=== PATIENT | female | born 1985 | race Caucasian/White ===

== ENCOUNTER 2020-08-17 18:37 | Emergency (ER) | payer MEDICAID ==
[~2020-08-17] VITALS: Ht 157.5 cm; Wt 56.6 kg
[2020-08-17] MEDS ORDERED: PYRIDOSTIGMINE 60 MG TABLET PO STA (19:36)
[2020-08-17] MEDS ORDERED: LORazepam 1MG TABLET PO ONE (20:00)
--- NOTE | 2020-08-17 20:10 | NUR ---
ASSUMING CARE OF PT AT THIS TIME. FIRST CONTACT FOR ILANA Iniguez RN AND MYSELF.
[2020-08-17] MEDS ORDERED: LORazepam 1MG TABLET ONE (20:17)
[2020-08-17 20:25] LABS: BASOPHILS % (AUTO) 1 % (0-1); EOSINOPHILS % (AUTO) 1 % (1-7); LYMPHOCYTES % (AUTO) 24 % (22-44); MEAN CORPUSCULAR HEMOGLOBIN 30.5 pg (27.0-34.8); MEAN CORPUSCULAR HGB CONC 33.4 g/dL (32.4-35.8); MEAN PLATELET VOLUME 9.3 fL (7.4-10.4); MONOCYTES % (AUTO) 6 % (2-9); NEUTROPHILS % (AUTO) 69 % (42-75); PLATELET COUNT 255 x10^3/uL (130-400); RED BLOOD COUNT 4.39 x10^6/uL (3.82-5.3)
[2020-08-17 20:26] LABS: MD NO
[2020-08-17 20:29] LABS: ALBUMIN 3.9 g/dL (3.4-5.0); ANION GAP 3 mmol/L (5-15); CALCIUM 8.9 mg/dL (8.5-10.1); CHLORIDE 108 mmol/L (98-107); CREATININE 0.52 mg/dL (0.55-1.02)
[2020-08-17 20:33] LABS: TROPONIN I < 0.015 ng/mL (0.000-0.045)
[2020-08-17 21:28] VITALS: BP 124/78
== END 2020-08-17 21:30 | disposition home or self-care (01) ==
LOC: ED 19:07
DX: F41.1 Generalized anxiety disorder (principal); R07.2 Precordial pain; R07.89 Other chest pain; R94.31 Abnormal electrocardiogram [ECG] [EKG]
CPT/HCPCS: 36415; 71045; 80048; 82040; 84484; 85025; 93005; 99285